=== PATIENT | female | born 1955 | race Caucasian/White ===

== ENCOUNTER → 2018-02-25 14:56 | Outpatient (CLI) | payer BC, SELFPAY ==
--- NOTE | 2018-02-25 14:59 | DI.MRI.S_ITS ---
PROCEDURE: MR HIP LT WO CON INDICATIONS: pain in left hip TECHNIQUE: Noncontrast coronal T1 spin echo and STIR through the bony pelvis. Coronal and axial T2 fast spin echo with fat saturation, sagittal T1 spin echo, and oblique axial T2 fast spin echo with fat saturation through the hip. COMPARISON: [facility], , [id number] W PEL IF PERFORMED, 12/18/2017, 16:49. FINDINGS: Image quality: Excellent. Bones and joints: Bone marrow of the pelvic ring and proximal femurs demonstrate normal signal. No intraosseous lesions or fractures. No avascular necrosis of the femoral heads. The visualized lower lumbar spine appears normally aligned. Tendons and ligaments: The gluteus medius tendon appears intact. There is mild partial tearing along the insertion of the gluteus minimus tendon distally. There is mild peritendinous edema along the distal gluteal tendons without a discrete bursal fluid collection. The nearby proximal iliotibial band also appears intact. The iliopsoas tendon appears intact, without adjacent bursal fluid collections or evidence for impingement syndrome. The origin of the hamstring tendon is intact at the ischial tuberosity, as well as the associated sacrotuberous ligament. The straight and reflected heads of the rectus femoris muscle origin appear intact, as well as the conjoint tendon. The ligamentum teres appears intact where visualized. Labrum and cartilage: The acetabular labrum appears intact in the absence of intra-articular contrast. There is mild degenerative signal within the superior and anterosuperior labrum. Cartilage surface of the femoral head demonstrates mild thickening superiorly. The alpha angle of the femur is within normal limits at less than 55 degrees. Soft tissues: Visualized muscles demonstrate normal bulk and internal signal. Quadratus femoris muscle demonstrates no internal edema to suggest ischiofemoral impingement. The proximal sciatic neurovascular bundle appears normal adjacent to the hamstring tendons. No free pelvic fluid. Bladder wall thickness is normal. Genitourinary structures and bowel loops appear normal where visualized. IMPRESSION: 1. Mild partial tearing at the insertion of the gluteus minimus tendon with mild peritendinitis. No discrete bursal fluid collection. 2. Mild degenerative signal within the labrum without discrete tear identified. Dictated by: Yohan Almaguer M.D. on 02/25/2018 at 17:00 Approved by: Yohan Almaguer M.D. on 02/25/2018 at 17:04
== END ==
PROVIDERS: PCP Family Medicine; Visit Provider Family Medicine
DX: M76.02 Gluteal tendinitis, left hip (principal); M25.552 Pain in left hip
CPT/HCPCS: 73721

== ENCOUNTER 2018-11-11 18:38 | Emergency (ER) | payer BC, SELFPAY ==
[2018-11-11 18:29] VITALS: BP 127/80; PULSE 99; RESP 20; TEMP 36.6; O2SAT 98; BMI 18.1
--- NOTE | 2018-11-11 19:00 | ED.BACK ---
HPI - Back Pain/Injury <ALEXANDER Figueroa - Last Filed: 11/11/18 22:18> General Chief Complaint: Back Pain/Injury Stated Complaint: Back pain Time Seen by Provider: 11/11/18 18:39 Source: patient Mode of arrival: ambulatory Limitations: no limitations History of Present Illness HPI Narrative: A 63-year-old female with history of a back pain is a former smoker here for complaint of pain into her lower back over the past couple of days. She was seen at primary care office today and due to having some red blood cells seen in her dip urine they wanted her to be seen here for evaluation for kidney stone. She denies any trauma to the lower back. She reports increased pain with motion of the lower back. She states she does have some pain into her bladder area. However she denies any frequent urination or dysuria. She has no nausea vomiting. No fevers or chills. She is tolerating p.o. fluids. She denies any strenuous activity. She denies any loss of bladder or bowel control. She is ambulatory today. She does report having some tingling sensations to bilateral legs. MD Complaint: back pain Onset (ago): minute(s) Duration: constant Related Data Previous Rx's Medication Instructions Recorded primidone 50 mg tablet 25 mg PO BID #180 03/07/18 hydrocodone 5 mg-acetaminophen 325 1 tab PO Q6HP PRN #30 04/30/18 mg tablet atorvastatin 10 mg tablet 10 mg PO HS #90 tab 06/04/18 sertraline 50 mg tablet 50 mg PO QDAY #90 tab 09/02/18 cephalexin 500 mg PO BID #14 cap 11/11/18 cyclobenzaprine 10 mg PO TID PRN #20 tab 11/11/18 prednisone 40 mg PO DAILY #8 tab 11/11/18 Allergies Allergy/AdvReac Type Severity Reaction Status Date / Time ciprofloxacin [From CIPRO] Allergy Unknown Verified 11/11/18 19:09 clindamycin [CLINDAMYCIN] Allergy Unknown Verified 11/11/18 19:09 codeine [CODEINE] Allergy Unknown Verified 11/11/18 19:09 erythromycin base Allergy Unknown Verified 11/11/18 19:09 [ERYTHROMYCIN BASE] Penicillins [PENICILLINS] Allergy Unknown Verified 11/11/18 19:09 Sulfa (Sulfonamide Allergy Unknown Verified 11/11/18 19:09 Antibiotics) [SULFA (SULFONAMIDE ANTIBIOTICS)] amoxicillin Allergy Verified 11/11/18 19:09 Review of Systems <ALEXANDER Figueroa - Last Filed: 11/11/18 22:18> Constitutional Denies chills, Denies fatigue, Denies fever(s), Denies lethargy and Denies weakness Eyes Denies change in vision, Denies eye discharge, Denies irritation and Denies loss of vision ENT Ears, Nose, Mouth, and Throat: Denies change in voice, Denies neck pain and Denies sore throat Cardiovascular Denies dyspnea and Denies dyspnea on exertion Respiratory Denies cough, Denies dyspnea, Denies dyspnea on exertion and Denies wheezing Gastrointestinal Gastrointestinal: Denies abdominal pain, Denies change in bowel habits, Denies diarrhea, Denies nausea and Denies vomiting Genitourinary Denies hematuria, Denies flank pain, Denies urinary incontinence and Denies urinary urgency Musculoskeletal Denies neck pain Comments: Lower back pain Integumentary/Breasts Denies pruritus, Denies erythema, Denies rash and Denies wounds Neurologic Denies confusion, Denies loss of vision and Denies weakness Psychiatric Denies anxiety, Denies confusion, Denies depression, Denies homicidal ideation and Denies suicidal ideation Endocrine Denies fatigue and Denies flushing Hematologic/Lymphatic Denies easy bruising Allergic/Immunologic Denies wheezing PFSH <ALEXANDER Figueroa - Last Filed: 11/11/18 22:18> Surgical History History of carpal tunnel release (Resolved 1982) Hx of hysterectomy (Resolved 1989) Hx of knee surgery (Resolved 1976) Hx of laparoscopy (Resolved 1988) Family History Father Cancer Grandfather No problems noted. Grandmother No problems noted. Grandfather No problems noted. Grandmother No problems noted. Social History Smoking Status: Former smoker alcohol intake: never substance use type: marijuana Social History Smoking Status: Former smoker alcohol intake: never substance use type: marijuana Exam <ALEXANDER Figueroa - Last Filed: 11/11/18 22:18> Initial Vital Signs Initial Vital Signs: Vital Signs Temperature 97.9 F 11/11/18 18:29 Pulse Rate 99 H 11/11/18 18:29 Respiratory Rate 20 11/11/18 18:29 Blood Pressure 127/80 11/11/18 18:29 Pulse Oximetry 98 11/11/18 18:29 Const General: cooperative and well developed Nutritional Appearance: well nourished Orientation: alert, awake, oriented x3 and not confused [facility] Mouth: oral mucosae normal and mucous membranes abnormal Eyes General: appearance normal, both eyes and all related structures Eyelids: eyelids normal Conjunctivae: conjunctivae normal Sclera: sclerae normal Pupils: PERRL EOM: EOM intact bilaterally Resp Effort & Inspection: normal respiratory effort, able to speak in complete sentences, no respiratory distress and no use of accessory muscles Auscultation: clear to auscultation bilaterally, no rales, no rhonchi and no wheezes Cardio Rate: regular rate Rhythm: regular rhythm Heart Sounds: no click, no gallops, no murmurs and no rubs Pulses: normal peripheral pulses GI Inspection: non-distended Palpation: soft, no hepatosplenomegaly, No guarding, No pulsatile mass and No tender Auscultation: normal bowel sounds Other: Pain into suprapubic area. General: No CVA tenderness Back/Spine/Pelvis Other: Tenderness to a bilateral paraspinal of lumbar area. Distal sensation is intact. Distal range of motions intact. Distal pulses are intact Skin General: no rashes or lesions noted, No jaundice and No petechiae Neuro General: alert, oriented x3, gait normal and no focal motor deficits Speech: speech normal <Fatmata Polo DO - Last Filed: 11/12/18 04:09> Initial Vital Signs Initial Vital Signs: Vital Signs Temperature 97.9 F 11/11/18 18:29 Pulse Rate 99 H 11/11/18 18:29 Respiratory Rate 20 11/11/18 18:29 Blood Pressure 127/80 1819 18:29 Pulse Oximetry 98 11/11/18 18:29 Course <ALEXANDER Figuerao - Last Filed: 11/11/18 22:18> Orders Ordered: ED Orders 11/11/18 19:10 Complete Blood Count AUTO DIFF Stat Comprehensive Metabolic Panel Stat Lipase Stat Partial Thromboplastin Time Stat Prothrombin Time INR Stat 11/11/18 19:33 CT kidney ureter bladder (KUB) Stat 11/11/18 20:00 Urine Culture Stat Urine Microscopic Stat Discontinued Medications Cephalexin HCl (Keflex) 500 mg PO NOW ONE Stop: 11/11/18 20:49 Last Admin: 11/11/18 21:19 Dose: 500 mg Cyclobenzaprine HCl (Flexeril 10 Mg Prepack) 1 bottle MISC SEEINSTR ONE Stop: 11/11/18 20:50 Last Admin: 11/11/18 21:19 Dose: 1 bottle Sodium Chloride (Normal Saline 0.9%) 1,000 mls @ 1,000 mls/hr IV BOLUS ONE Stop: 11/11/18 20:00 Last Infusion: 11/11/18 21:19 Dose: 0 mls/hr Admin: 11/11/18 19:09 Dose: 1,000 mls/hr Ketorolac Tromethamine (Toradol) 30 mg IV NOW ONE Stop: 11/11/18 19:02 Last Admin: 11/11/18 19:09 Dose: 30 mg Ondansetron HCl (Zofran) 4 mg IV NOW ONE Stop: 11/11/18 19:02 Last Admin: 11/11/18 19:09 Dose: 4 mg Vital Signs - 8 hr 11/11/18 20:45 Temperature 98.1 F Pulse Rate 71 Respiratory Rate 19 Blood Pressure [Left Arm] 118/65 Pulse Oximetry 99 <Fatmata Polo DO - Last Filed: 11/12/18 04:09> Orders Ordered: ED Orders 11/11/18 19:10 Complete Blood Count AUTO DIFF Stat Comprehensive Metabolic Panel Stat Lipase Stat Partial Thromboplastin Time Stat Prothrombin Time INR Stat 11/11/18 19:33 CT kidney ureter bladder (KUB) Stat 11/11/18 20:00 Urine Culture Stat Urine Microscopic Stat Discontinued Medications Cephalexin HCl (Keflex) 500 mg PO NOW ONE Stop: 11/11/18 20:49 Last Admin: 11/11/18 21:19 Dose: 500 mg Cyclobenzaprine HCl (Flexeril 10 Mg Prepack) 1 bottle MISC SEEINSTR ONE Stop: 11/11/18 20:50 Last Admin: 11/11/18 21:19 Dose: 1 bottle Sodium Chloride (Normal Saline 0.9%) 1,000 mls @ 1,000 mls/hr IV BOLUS ONE Stop: 11/11/18 20:00 Last Infusion: 11/11/18 21:19 Dose: 0 mls/hr Admin: 02/18/19 19:09 Dose: 1,000 mls/hr Ketorolac Tromethamine (Toradol) 30 mg IV NOW ONE Stop: 11/11/18 19:02 Last Admin: 11/11/18 19:09 Dose: 30 mg Ondansetron HCl (Zofran) 4 mg IV NOW ONE Stop: 11/11/18 19:02 Last Admin: 11/11/18 19:09 Dose: 4 mg Vital Signs - 8 hr 11/11/18 20:45 Temperature 98.1 F Pulse Rate 71 Respiratory Rate 19 Blood Pressure [Left Arm] 118/65 Pulse Oximetry 99 MDM - Back Pain/Injury <ALEXANDER Figueroa - Last Filed: 11/11/18 22:18> Lab Data Result diagrams: 11/11/18 19:10 11/11/18 19:10 Lab Results 11/11/18 11/11/18 11/11/18 Range/Units 19:10 19:10 19:10 WBC 7.1 (4.5-11.0) X10^3/uL RBC 5.03 (4.0-5.2) X10^6/uL Hgb 14.3 (12.0-16.0) g/dL Hct 42.7 (36-46) % MCV 85.1 (80-100) fL MCH 28.5 (26-34) PG MCHC 33.5 (30-36) % RDW 13.9 (11.6-14.8) % Plt Count 251 (150-400) X10^3/uL Neut % (Auto) 88.7 H (50-75) % Lymph % (Auto) 5.2 L (25-40) % [place] % (Auto) 4.9 (3-14) % Eos % (Auto) 0.5 L (2-4) % Baso % (Auto) 0.7 (0-2) % Neut # (Auto) 6300 (5307-9629) /uL Lymph # (Auto) 400 L (0792-8248) /uL [place] # (Auto) 300 (0-900) /uL Eos # (Auto) 0 (0-450) /uL Baso # (Auto) 100 (0-100) /uL PT 12.4 (10.1-12.7) SECONDS INR 1.1 (0.9-1.3) APTT 28 (26.4-36.2) SECONDS Sodium 135 L (137-145) mmol/L Potassium 3.5 (3.4-5.1) mmol/L Chloride 102 (98-107) mmol/L Carbon Dioxide 19 L (22-32) mmol/L BUN 11 (7-17) mg/dL Creatinine 0.80 (0.52-1.04) mg/dL Estimated GFR > 60.0 (>60) mL/min BUN/Creatinine Ratio 13.8 (6-22) Glucose 100 (80-110) mg/dL Calcium 9.6 (8.4-10.2) mg/dL Total Bilirubin 0.6 (0.2-1.3) mg/dL AST 22 (14-36) IU/L ALT 24 (9-52) IU/L Alkaline Phosphatase 72 (38-126) U/L Total Protein 7.5 (6.3-8.2) g/dL Albumin 4.7 (3.5-5.0) g/dL Globulin 2.8 (1.7-4.1) g/dL Albumin/Globulin Ratio 1.7 (1.0-2.8) Lipase 70 (23-300) U/L Urine RBC (0-5/HPF) Urine WBC (0-5/HPF) Ur Squamous Epith Cells Urine Bacteria (None) Ur Culture Indicated? 11/11/18 Range/Units 20:00 WBC (4.5-11.0) X10^3/uL RBC (4.0-5.2) X10^6/uL Hgb (12.0-16.0) g/dL Hct (36-46) % MCV (80-100) fL MCH (26-34) PG MCHC (30-36) % RDW (11.6-14.8) % Plt Count (150-400) X10^3/uL Neut % (Auto) (50-75) % Lymph % (Auto) (25-40) % [place] % (Auto) (3-14) % Eos % (Auto) (2-4) % Baso % (Auto) (0-2) % Neut # (Auto) (3933-5333) /uL Lymph # (Auto) (5545-9086) /uL [place] # (Auto) (0-900) /uL Eos # (Auto) (0-450) /uL Baso # (Auto) (0-100) /uL PT (10.1-12.7) SECONDS INR (0.9-1.3) APTT (26.4-36.2) SECONDS Sodium (137-145) mmol/L Potassium (3.4-5.1) mmol/L Chloride (98-107) mmol/L Carbon Dioxide (22-32) mmol/L BUN (7-17) mg/dL Creatinine (0.52-1.04) mg/dL Estimated GFR (>60) mL/min BUN/Creatinine Ratio (6-22) Glucose (80-110) mg/dL Calcium (8.4-10.2) mg/dL Total Bilirubin (0.2-1.3) mg/dL AST (14-36) IU/L ALT (9-52) IU/L Alkaline Phosphatase (38-126) U/L Total Protein (6.3-8.2) g/dL Albumin (3.5-5.0) g/dL Globulin (1.7-4.1) g/dL Albumin/Globulin Ratio (1.0-2.8) Lipase (23-300) U/L Urine RBC 1-5/hpf (0-5/HPF) Urine WBC 1-5/hpf (0-5/HPF) Ur Squamous Epith Cells 0-1 /hpf Urine Bacteria None seen (None) Ur Culture Indicated? Specimen cultured Urine Dip Bedside Urine Glucose Negative Bedside Urine Bilirubin - Negative Bedside Urine Ketone + 15 Urine Specific [place] 1.010 Bedside Urine Occult Blood ++ Bedside Urine pH 8.0 Bedside Urine Protein - Negative Bedside Urine Urobilinogen - Negative Bedside Urine Nitrite - Negative Bedside Urine Leukocytes + [address] scan - abdomen: Radiologist's impression: [address] [address] [address] Scan Report Signed Patient: Buffy Umana CMR#: [id number] : 5Acct:[id number] Age/Sex: 63 / FDate of Service: 11/11/18 Loc: ED Accession Number: [id number] Procedure: CT kidney ureter bladder (KUB) Ordering Provider: Armando Reilly PROCEDURE: CT KIDNEY URETER BLADDER (KUB) INDICATIONS: Bilateral lower back pain. RBCs in urine TECHNIQUE: Noncontrast 5 mm thick sections acquired from the diaphragms to the symphysis. 5 mm thick coronal and sagittal reformats were then performed. For radiation dose reduction, the following was used: automated exposure control, adjustment of mA and/or kV according to patient size. COMPARISON: None. FINDINGS: Image quality: Excellent. Lung bases: Lung bases are clear. Heart size is normal. Urinary system: Both kidneys are normal in size. No kidney stones. No hydronephrosis or perinephric fat stranding. Both ureters appear non-dilated throughout their expected courses. Bladder wall thickness is normal; no calcified bladder stones. Other solid organs: Liver is normal in size. Gallbladder is normal. Pancreas is normal in contours. Spleen is normal in size. No adrenal nodules. Mild left adrenal thickening. Peritoneum and bowel: Unenhanced bowel loops demonstrate normal wall thickness and caliber. No free fluid or air. There is a large amount stool in colon. Nodes and vessels: No retroperitoneal or mesenteric adenopathy by size criteria. Aorta and inferior vena cava are normal in caliber. Moderate aortic atherosclerosis. Abdominal wall: Tiny fat containing umbilical hernia. Pelvis: Uterus is absent. Ovaries are normal. There is no adnexal mass. No pathological free fluid. No inguinal hernias or adenopathy. Bones: No suspicious bony lesions. No vertebral body compression fractures. IMPRESSION: 1. No renal stones or hydronephrosis. 2. Large amount stool in colon. Dictated by: Kylie Putnam M.D. on 11/11/2018 at 20:17 Approved by: Kylie Putnam M.D. on 11/11/2018 at 20:24 MDM Narrative Medical decision making narrative: KUB CT was obtained was negative for any kidney stones or any acute findings. CBC was obtained and was unremarkable. chemistry panel was obtained and was also unremarkable. urinalysis showed positive for leuko esterase and 1-5 RBCs and 1-5 WBCs. Will treat for urinary tract infection with cephalexin. She is encouraged to follow up with primary care provider next few days for re-evaluation. Back pain presents as lower back sprain/strain. She is prescribed cyclobenzaprine to help with any muscle tension/spasm. [id number] ibuprofen as needed for any discomfort. Short course of prednisone to help with anti-inflammatory effects and was perceived as sciatica due to tingling to bilateral lower extremities. No loss of bladder or bowel control. Do not appreciate caude equine symptoms at time of exam. For any worsening symptoms return emergency room. <Fatmata Polo, DO - Last Filed: 11/12/18 04:09> Lab Data Lab Results 11/11/18 11/11/18 11/11/18 Range/Units 19:10 19:10 19:10 WBC 7.1 (4.5-11.0) X10^3/uL RBC 5.03 (4.0-5.2) X10^6/uL Hgb 14.3 (12.0-16.0) g/dL Hct 42.7 (36-46) % MCV 85.1 (80-100) fL MCH 28.5 (26-34) PG MCHC 33.5 (30-36) % RDW 13.9 (11.6-14.8) % Plt Count 251 (150-400) X10^3/uL Neut % (Auto) 88.7 H (50-75) % Lymph % (Auto) 5.2 L (25-40) % [place] % (Auto) 4.9 (3-14) % Eos % (Auto) 0.5 L (2-4) % Baso % (Auto) 0.7 (0-2) % Neut # (Auto) 6300 (2670-9658) /uL Lymph # (Auto) 400 L (9880-4168) /uL [place] # (Auto) 300 (0-900) /uL Eos # (Auto) 0 (0-450) /uL Baso # (Auto) 100 (0-100) /uL PT 12.4 (10.1-12.7) SECONDS INR 1.1 (0.9-1.3) APTT 28 (26.4-36.2) SECONDS Sodium 135 L (137-145) mmol/L Potassium 3.5 (3.4-5.1) mmol/L Chloride 102 (98-107) mmol/L Carbon Dioxide 19 L (22-32) mmol/L BUN 11 (7-17) mg/dL Creatinine 0.80 (0.52-1.04) mg/dL Estimated GFR > 60.0 (>60) mL/min BUN/Creatinine Ratio 13.8 (6-22) Glucose 100 (80-110) mg/dL Calcium 9.6 (8.4-10.2) mg/dL Total Bilirubin 0.6 (0.2-1.3) mg/dL AST 22 (14-36) IU/L ALT 24 (9-52) IU/L Alkaline Phosphatase 72 (38-126) U/L Total Protein 7.5 (6.3-8.2) g/dL Albumin 4.7 (3.5-5.0) g/dL Globulin 2.8 (1.7-4.1) g/dL Albumin/Globulin Ratio 1.7 (1.0-2.8) Lipase 70 (23-300) U/L Urine RBC (0-5/HPF) Urine WBC (0-5/HPF) Ur Squamous Epith Cells Urine Bacteria (None) Ur Culture Indicated? 11/11/18 Range/Units 20:00 WBC (4.5-11.0) X10^3/uL RBC (4.0-5.2) X10^6/uL Hgb (12.0-16.0) g/dL Hct (36-46) % MCV (80-100) fL MCH (26-34) PG MCHC (30-36) % RDW (11.6-14.8) % Plt Count (150-400) X10^3/uL Neut % (Auto) (50-75) % Lymph % (Auto) (25-40) % [place] % (Auto) (3-14) % Eos % (Auto) (2-4) % Baso % (Auto) (0-2) % Neut # (Auto) (7067-5171) /uL Lymph # (Auto) (9236-9866) /uL [place] # (Auto) (0-900) /uL Eos # (Auto) (0-450) /uL Baso # (Auto) (0-100) /uL PT (10.1-12.7) SECONDS INR (0.9-1.3) APTT (26.4-36.2) SECONDS Sodium (137-145) mmol/L Potassium (3.4-5.1) mmol/L Chloride (98-107) mmol/L Carbon Dioxide (22-32) mmol/L BUN (7-17) mg/dL Creatinine (0.52-1.04) mg/dL Estimated GFR (>60) mL/min BUN/Creatinine Ratio (6-22) Glucose (80-110) mg/dL Calcium (8.4-10.2) mg/dL Total Bilirubin (0.2-1.3) mg/dL AST (14-36) IU/L ALT (9-52) IU/L Alkaline Phosphatase (38-126) U/L Total Protein (6.3-8.2) g/dL Albumin (3.5-5.0) g/dL Globulin (1.7-4.1) g/dL Albumin/Globulin Ratio (1.0-2.8) Lipase (23-300) U/L Urine RBC 1-5/hpf (0-5/HPF) Urine WBC 1-5/hpf (0-5/HPF) Ur Squamous Epith Cells 0-1 /hpf Urine Bacteria None seen (None) Ur Culture Indicated? Specimen cultured Urine Dip Bedside Urine Glucose Negative Bedside Urine Bilirubin - Negative Bedside Urine Ketone + 15 Urine Specific [place] 1.010 Bedside Urine Occult Blood ++ Bedside Urine pH 8.0 Bedside Urine Protein - Negative Bedside Urine Urobilinogen - Negative Bedside Urine Nitrite - Negative Bedside Urine Leukocytes + 70 Esterase Discharge Plan Departure Patient Disposition: Home Clinical Impression: Strain of lumbar region Qualifiers: Encounter type: initial encounter Qualified Code(s): S39.012A - Strain of muscle, fascia and tendon of lower back, initial encounter Sciatica Qualifiers: Laterality: bilateral Qualified Code(s): M54.31 - Sciatica, right side Urinary tract infection Qualifiers: Urinary tract infection type: acute cystitis Hematuria presence: with hematuria Qualified Code(s): N30.01 - Acute cystitis with hematuria Discharge Date/Time: 11/11/18 21:26 Interventions: ED Discharge Assessment Last Done: 11/11/18 21:25 Instructions: DI for Back Pain With Sciatica Activity Restrictions/Additional Instructions: Back pain presents as a lower back sprain/strain with sciatica by laterally. UR placed on a muscle relaxer called cyclobenzaprine use as directed. Also use [id number] ibuprofen. Short course of prednisone is prescribed to help with sciatica symptoms use as directed. No driving while on muscle relaxer can make you drowsy. Urinalysis indicates urinary tract infection. Rest area. Gentle range of motion painful areas help keep muscles loose. You are placed on antibiotic called Keflex use as directed. For any worsening symptoms return to the emergency room. Prescriptions: New cyclobenzaprine 10 mg tablet 10 mg PO TID PRN (Reason: muscle spasm) Qty: 20 RF: 0 prednisone 20 mg tablet 40 mg PO DAILY Qty: 8 RF: 0 cephalexin 500 mg capsule 500 mg PO BID Qty: 14 RF: 0 No Action hydrocodone-acetaminophen 5-325 mg tablet 1 tab PO Q6HP PRN (Reason: pain) Qty: 30 RF: 0 primidone [Mysoline] 50 mg tablet 25 mg PO BID Qty: 180 RF: 1 atorvastatin [Lipitor] 10 mg tablet 10 mg PO HS Qty: 90 RF: 1 sertraline 50 mg tablet 50 mg PO QDAY Qty: 90 RF: 3 Referrals: [facility] [Provider Group] <Fatmata Polo DO - Last Filed: 11/12/18 04:09> Cosign ED Attending Tha Attestation: I was immediately available in the department for consultation. Documentation has been reviewed. I agree with assessment and plan.
[2018-11-11] MEDS: SODIUM CHLORIDE 0.9% 1,000 ML 1000 ML IV (19:09)
[2018-11-11] MEDS: KETOROLAC 60 MG/2 ML VIAL 30 MG IV (19:09)
[2018-11-11] MEDS: ONDANSETRON 4 MG/2 ML INJ IV (19:09)
[2018-11-11 19:27] LABS: Add Manual Diff / Slide Review NO; Basophils Absolute Auto 100 /uL (0-100); Basophils Percent Auto 0.7 % (0-2); Eosinophils Absolute Auto 0 /uL (0-450); Eosinophils Percent Auto 0.5 % (2-4); Hematocrit 42.7 % (36-46); Hemoglobin 14.3 g/dL (12.0-16.0); Lymphocytes Absolute Auto 400 /uL (1100-4500); Lymphocytes Percent Auto 5.2 % (25-40); Mean Corpuscular HGB Conc 33.5 % (30-36); Mean Corpuscular Hemoglobin 28.5 PG (26-34); Mean Corpuscular Volume 85.1 fL (80-100); Monocytes Absolute Auto 300 /uL (0-900); Monocytes Percent Auto 4.9 % (3-14); Neutrophils Absolute Auto 6300 /uL (1500-7000); Neutrophils Percent Auto 88.7 % (50-75); Platelet Count 251 X10^3/uL (150-400); Red Blood Cell Count 5.03 X10^6/uL (4.0-5.2); Red Cell Distribution Width 13.9 % (11.6-14.8); White Blood Cell Count 7.1 X10^3/uL (4.5-11.0)
[2018-11-11 19:33] LABS: INR 1.1 (0.9-1.3); Prothrombin Time 12.4 SECONDS (10.1-12.7)
--- NOTE | 2018-11-11 19:33 | DI.CT.S_ITS ---
PROCEDURE: CT KIDNEY URETER BLADDER (KUB) INDICATIONS: Bilateral lower back pain. RBCs in urine TECHNIQUE: Noncontrast 5 mm thick sections acquired from the diaphragms to the symphysis. 5 mm thick coronal and sagittal reformats were then performed. For radiation dose reduction, the following was used: automated exposure control, adjustment of mA and/or kV according to patient size. COMPARISON: None. FINDINGS: Image quality: Excellent. Lung bases: Lung bases are clear. Heart size is normal. Urinary system: Both kidneys are normal in size. No kidney stones. No hydronephrosis or perinephric fat stranding. Both ureters appear non-dilated throughout their expected courses. Bladder wall thickness is normal; no calcified bladder stones. Other solid organs: Liver is normal in size. Gallbladder is normal. Pancreas is normal in contours. Spleen is normal in size. No adrenal nodules. Mild left adrenal thickening. Peritoneum and bowel: Unenhanced bowel loops demonstrate normal wall thickness and caliber. No free fluid or air. There is a large amount stool in colon. Nodes and vessels: No retroperitoneal or mesenteric adenopathy by size criteria. Aorta and inferior vena cava are normal in caliber. Moderate aortic atherosclerosis. Abdominal wall: Tiny fat containing umbilical hernia. Pelvis: Uterus is absent. Ovaries are normal. There is no adnexal mass. No pathological free fluid. No inguinal hernias or adenopathy. Bones: No suspicious bony lesions. No vertebral body compression fractures. IMPRESSION: 1. No renal stones or hydronephrosis. 2. Large amount stool in colon. Dictated by: Kylie Putnam M.D. on 11/11/2018 at 20:17 Approved by: Kylie Putnam M.D. on 11/11/2018 at 20:24
[2018-11-11 19:36] LABS: PTT Partial Thromboplastin Tim 28 SECONDS (26.4-36.2)
[2018-11-11 19:40] LABS: Alanine Aminotransferase 24 IU/L (9-52); Albumin 4.7 g/dL (3.5-5.0); Albumin Globulin Ratio 1.7 (1.0-2.8); Alkaline Phosphatase 72 U/L (38-126); Aspartate Aminotransferase 22 IU/L (14-36); BUN Creatinine Ratio 13.8 (6-22); Bilirubin Total 0.6 mg/dL (0.2-1.3); Blood Urea Nitrogen 11 mg/dL (7-17); Calcium 9.6 mg/dL (8.4-10.2); Carbon Dioxide 19 mmol/L (22-32); Chloride 102 mmol/L (98-107); Estimated Glomerular Filt Rate > 60.0 mL/min (>60); Globulin 2.8 g/dL (1.7-4.1); Glucose 100 mg/dL (80-110); HEMOLYSIS < 15 (0-50); Lipase 70 U/L (23-300); Potassium 3.5 mmol/L (3.4-5.1); Sodium 135 mmol/L (137-145); Total Protein 7.5 g/dL (6.3-8.2)
[2018-11-11 20:08] LABS: Bacteria Urine None Seen
[2018-11-11 20:21] LABS: Culture Indicated Urine Specimen Cultured; RBC Urine 1-5/HPF (0-5/HPF); Squamous Epithelial Cell Urine 0-1 /HPF; WBC Urine 1-5/HPF (0-5/HPF)
--- NOTE | 2018-11-11 20:35 | ED_ITS ---
HPI - Back Pain/Injury <ALEXANDER Figueroa - Last Filed: 11/11/18 22:18> General Chief Complaint: Back Pain/Injury Stated Complaint: Back pain Time Seen by Provider: 11/11/18 18:39 Source: patient Mode of arrival: ambulatory Limitations: no limitations History of Present Illness HPI Narrative: A 63-year-old female with history of a back pain is a former smoker here for complaint of pain into her lower back over the past couple of days. She was seen at primary care office today and due to having some red blood cells seen in her dip urine they wanted her to be seen here for evaluation for kidney stone. She denies any trauma to the lower back. She reports increased pain with motion of the lower back. She states she does have some pain into her bladder area. However she denies any frequent urination or dysuria. She has no nausea vomiting. No fevers or chills. She is tolerating p.o. fluids. She denies any strenuous activity. She denies any loss of bladder or bowel control. She is ambulatory today. She does report having some tingling sensations to bilateral legs. MD Complaint: back pain Onset (ago): minute(s) Duration: constant Related Data Previous Rx's Medication Instructions Recorded primidone 50 mg tablet 25 mg PO BID #180 03/07/18 hydrocodone 5 mg-acetaminophen 325 1 tab PO Q6HP PRN #30 04/30/18 mg tablet atorvastatin 10 mg tablet 10 mg PO HS #90 tab 06/04/18 sertraline 50 mg tablet 50 mg PO QDAY #90 tab 09/02/18 cephalexin 500 mg PO BID #14 cap 11/11/18 cyclobenzaprine 10 mg PO TID PRN #20 tab 11/11/18 prednisone 40 mg PO DAILY #8 tab 11/11/18 Allergies Allergy/AdvReac Type Severity Reaction Status Date / Time ciprofloxacin [From CIPRO] Allergy Unknown Verified 11/11/18 19:09 clindamycin [CLINDAMYCIN] Allergy Unknown Verified 11/11/18 19:09 codeine [CODEINE] Allergy Unknown Verified 11/11/18 19:09 erythromycin base Allergy Unknown Verified 11/11/18 19:09 [ERYTHROMYCIN BASE] Penicillins [PENICILLINS] Allergy Unknown Verified 11/11/18 19:09 Sulfa (Sulfonamide Allergy Unknown Verified 11/11/18 19:09 Antibiotics) [SULFA (SULFONAMIDE ANTIBIOTICS)] amoxicillin Allergy Verified 11/11/18 19:09 Review of Systems <ALEXANDER Figueroa - Last Filed: 11/11/18 22:18> Constitutional Denies chills, Denies fatigue, Denies fever(s), Denies lethargy and Denies weakness Eyes Denies change in vision, Denies eye discharge, Denies irritation and Denies loss of vision ENT Ears, Nose, Mouth, and Throat: Denies change in voice, Denies neck pain and Denies sore throat Cardiovascular Denies dyspnea and Denies dyspnea on exertion Respiratory Denies cough, Denies dyspnea, Denies dyspnea on exertion and Denies wheezing Gastrointestinal Gastrointestinal: Denies abdominal pain, Denies change in bowel habits, Denies diarrhea, Denies nausea and Denies vomiting Genitourinary Denies hematuria, Denies flank pain, Denies urinary incontinence and Denies urinary urgency Musculoskeletal Denies neck pain Comments: Lower back pain Integumentary/Breasts Denies pruritus, Denies erythema, Denies rash and Denies wounds Neurologic Denies confusion, Denies loss of vision and Denies weakness Psychiatric Denies anxiety, Denies confusion, Denies depression, Denies homicidal ideation and Denies suicidal ideation Endocrine Denies fatigue and Denies flushing Hematologic/Lymphatic Denies easy bruising Allergic/Immunologic Denies wheezing PFSH <ALEXANDER Figueroa - Last Filed: 11/11/18 22:18> Surgical History History of carpal tunnel release (Resolved 1982) Hx of hysterectomy (Resolved 1989) Hx of knee surgery (Resolved 1976) Hx of laparoscopy (Resolved 1988) Family History Father Cancer Grandfather No problems noted. Grandmother No problems noted. Grandfather No problems noted. Grandmother No problems noted. Social History Smoking Status: Former smoker alcohol intake: never substance use type: marijuana Social History Smoking Status: Former smoker alcohol intake: never substance use type: marijuana Exam <ALEXANDER Figueroa - Last Filed: 11/11/18 22:18> Initial Vital Signs Initial Vital Signs: Vital Signs Temperature 97.9 F 11/11/18 18:29 Pulse Rate 99 H 11/11/18 18:29 Respiratory Rate 20 11/11/18 18:29 Blood Pressure 127/80 11/11/18 18:29 Pulse Oximetry 98 11/11/18 18:29 Const General: cooperative and well developed Nutritional Appearance: well nourished Orientation: alert, awake, oriented x3 and not confused [facility] Mouth: oral mucosae normal and mucous membranes abnormal Eyes General: appearance normal, both eyes and all related structures Eyelids: eyelids normal Conjunctivae: conjunctivae normal Sclera: sclerae normal Pupils: PERRL EOM: EOM intact bilaterally Resp Effort & Inspection: normal respiratory effort, able to speak in complete sentences, no respiratory distress and no use of accessory muscles Auscultation: clear to auscultation bilaterally, no rales, no rhonchi and no wheezes Cardio Rate: regular rate Rhythm: regular rhythm Heart Sounds: no click, no gallops, no murmurs and no rubs Pulses: normal peripheral pulses GI Inspection: non-distended Palpation: soft, no hepatosplenomegaly, No guarding, No pulsatile mass and No tender Auscultation: normal bowel sounds Other: Pain into suprapubic area. General: No CVA tenderness Back/Spine/Pelvis Other: Tenderness to a bilateral paraspinal of lumbar area. Distal sensation is intact. Distal range of motions intact. Distal pulses are intact Skin General: no rashes or lesions noted, No jaundice and No petechiae Neuro General: alert, oriented x3, gait normal and no focal motor deficits Speech: speech normal <Fatmata Polo DO - Last Filed: 11/12/18 04:09> Initial Vital Signs Initial Vital Signs: Vital Signs Temperature 97.9 F 11/11/18 18:29 Pulse Rate 99 H 11/11/18 18:29 Respiratory Rate 20 11/11/18 18:29 Blood Pressure 127/80 1819 18:29 Pulse Oximetry 98 11/11/18 18:29 Course <ALEXANDER Figueroa - Last Filed: 11/11/18 22:18> Orders Ordered: ED Orders 11/11/18 19:10 Complete Blood Count AUTO DIFF Stat Comprehensive Metabolic Panel Stat Lipase Stat Partial Thromboplastin Time Stat Prothrombin Time INR Stat 11/11/18 19:33 CT kidney ureter bladder (KUB) Stat 11/11/18 20:00 Urine Culture Stat Urine Microscopic Stat Discontinued Medications Cephalexin HCl (Keflex) 500 mg PO NOW ONE Stop: 11/11/18 20:49 Last Admin: 11/11/18 21:19 Dose: 500 mg Cyclobenzaprine HCl (Flexeril 10 Mg Prepack) 1 bottle MISC SEEINSTR ONE Stop: 11/11/18 20:50 Last Admin: 11/11/18 21:19 Dose: 1 bottle Sodium Chloride (Normal Saline 0.9%) 1,000 mls @ 1,000 mls/hr IV BOLUS ONE Stop: 11/11/18 20:00 Last Infusion: 11/11/18 21:19 Dose: 0 mls/hr Admin: 11/11/18 19:09 Dose: 1,000 mls/hr Ketorolac Tromethamine (Toradol) 30 mg IV NOW ONE Stop: 11/11/18 19:02 Last Admin: 11/11/18 19:09 Dose: 30 mg Ondansetron HCl (Zofran) 4 mg IV NOW ONE Stop: 11/11/18 19:02 Last Admin: 11/11/18 19:09 Dose: 4 mg Vital Signs - 8 hr 11/11/18 20:45 Temperature 98.1 F Pulse Rate 71 Respiratory Rate 19 Blood Pressure [Left Arm] 118/65 Pulse Oximetry 99 <Fatmata Polo DO - Last Filed: 11/12/18 04:09> Orders Ordered: ED Orders 11/11/18 19:10 Complete Blood Count AUTO DIFF Stat Comprehensive Metabolic Panel Stat Lipase Stat Partial Thromboplastin Time Stat Prothrombin Time INR Stat 11/11/18 19:33 CT kidney ureter bladder (KUB) Stat 11/11/18 20:00 Urine Culture Stat Urine Microscopic Stat Discontinued Medications Cephalexin HCl (Keflex) 500 mg PO NOW ONE Stop: 11/11/18 20:49 Last Admin: 11/11/18 21:19 Dose: 500 mg Cyclobenzaprine HCl (Flexeril 10 Mg Prepack) 1 bottle MISC SEEINSTR ONE Stop: 11/11/18 20:50 Last Admin: 11/11/18 21:19 Dose: 1 bottle Sodium Chloride (Normal Saline 0.9%) 1,000 mls @ 1,000 mls/hr IV BOLUS ONE Stop: 11/11/18 20:00 Last Infusion: 11/11/18 21:19 Dose: 0 mls/hr Admin: 02/18/19 19:09 Dose: 1,000 mls/hr Ketorolac Tromethamine (Toradol) 30 mg IV NOW ONE Stop: 11/11/18 19:02 Last Admin: 11/11/18 19:09 Dose: 30 mg Ondansetron HCl (Zofran) 4 mg IV NOW ONE Stop: 11/11/18 19:02 Last Admin: 11/11/18 19:09 Dose: 4 mg Vital Signs - 8 hr 11/11/18 20:45 Temperature 98.1 F Pulse Rate 71 Respiratory Rate 19 Blood Pressure [Left Arm] 118/65 Pulse Oximetry 99 MDM - Back Pain/Injury <ALEXANDER Figueroa - Last Filed: 11/11/18 22:18> Lab Data Result diagrams: 11/11/18 19:10 11/11/18 19:10 Lab Results 11/11/18 11/11/18 11/11/18 Range/Units 19:10 19:10 19:10 WBC 7.1 (4.5-11.0) X10^3/uL RBC 5.03 (4.0-5.2) X10^6/uL Hgb 14.3 (12.0-16.0) g/dL Hct 42.7 (36-46) % MCV 85.1 (80-100) fL MCH 28.5 (26-34) PG MCHC 33.5 (30-36) % RDW 13.9 (11.6-14.8) % Plt Count 251 (150-400) X10^3/uL Neut % (Auto) 88.7 H (50-75) % Lymph % (Auto) 5.2 L (25-40) % [place] % (Auto) 4.9 (3-14) % Eos % (Auto) 0.5 L (2-4) % Baso % (Auto) 0.7 (0-2) % Neut # (Auto) 6300 (4553-5451) /uL Lymph # (Auto) 400 L (0123-4676) /uL [place] # (Auto) 300 (0-900) /uL Eos # (Auto) 0 (0-450) /uL Baso # (Auto) 100 (0-100) /uL PT 12.4 (10.1-12.7) SECONDS INR 1.1 (0.9-1.3) APTT 28 (26.4-36.2) SECONDS Sodium 135 L (137-145) mmol/L Potassium 3.5 (3.4-5.1) mmol/L Chloride 102 (98-107) mmol/L Carbon Dioxide 19 L (22-32) mmol/L BUN 11 (7-17) mg/dL Creatinine 0.80 (0.52-1.04) mg/dL Estimated GFR > 60.0 (>60) mL/min BUN/Creatinine Ratio 13.8 (6-22) Glucose 100 (80-110) mg/dL Calcium 9.6 (8.4-10.2) mg/dL Total Bilirubin 0.6 (0.2-1.3) mg/dL AST 22 (14-36) IU/L ALT 24 (9-52) IU/L Alkaline Phosphatase 72 (38-126) U/L Total Protein 7.5 (6.3-8.2) g/dL Albumin 4.7 (3.5-5.0) g/dL Globulin 2.8 (1.7-4.1) g/dL Albumin/Globulin Ratio 1.7 (1.0-2.8) Lipase 70 (23-300) U/L Urine RBC (0-5/HPF) Urine WBC (0-5/HPF) Ur Squamous Epith Cells Urine Bacteria (None) Ur Culture Indicated? 11/11/18 Range/Units 20:00 WBC (4.5-11.0) X10^3/uL RBC (4.0-5.2) X10^6/uL Hgb (12.0-16.0) g/dL Hct (36-46) % MCV (80-100) fL MCH (26-34) PG MCHC (30-36) % RDW (11.6-14.8) % Plt Count (150-400) X10^3/uL Neut % (Auto) (50-75) % Lymph % (Auto) (25-40) % [place] % (Auto) (3-14) % Eos % (Auto) (2-4) % Baso % (Auto) (0-2) % Neut # (Auto) (6193-0512) /uL Lymph # (Auto) (8281-1864) /uL [place] # (Auto) (0-900) /uL Eos # (Auto) (0-450) /uL Baso # (Auto) (0-100) /uL PT (10.1-12.7) SECONDS INR (0.9-1.3) APTT (26.4-36.2) SECONDS Sodium (137-145) mmol/L Potassium (3.4-5.1) mmol/L Chloride (98-107) mmol/L Carbon Dioxide (22-32) mmol/L BUN (7-17) mg/dL Creatinine (0.52-1.04) mg/dL Estimated GFR (>60) mL/min BUN/Creatinine Ratio (6-22) Glucose (80-110) mg/dL Calcium (8.4-10.2) mg/dL Total Bilirubin (0.2-1.3) mg/dL AST (14-36) IU/L ALT (9-52) IU/L Alkaline Phosphatase (38-126) U/L Total Protein (6.3-8.2) g/dL Albumin (3.5-5.0) g/dL Globulin (1.7-4.1) g/dL Albumin/Globulin Ratio (1.0-2.8) Lipase (23-300) U/L Urine RBC 1-5/hpf (0-5/HPF) Urine WBC 1-5/hpf (0-5/HPF) Ur Squamous Epith Cells 0-1 /hpf Urine Bacteria None seen (None) Ur Culture Indicated? Specimen cultured Urine Dip Bedside Urine Glucose Negative Bedside Urine Bilirubin - Negative Bedside Urine Ketone + 15 Urine Specific [place] 1.010 Bedside Urine Occult Blood ++ Bedside Urine pH 8.0 Bedside Urine Protein - Negative Bedside Urine Urobilinogen - Negative Bedside Urine Nitrite - Negative Bedside Urine Leukocytes + [address] scan - abdomen: Radiologist's impression: [address] [address] [address] Scan Report Signed Patient: Buffy Umana CMR#: [id number] : 5Acct:[id number] Age/Sex: 63 / FDate of Service: 11/11/18 Loc: ED Accession Number: [id number] Procedure: CT kidney ureter bladder (KUB) Ordering Provider: Armando Reilly PROCEDURE: CT KIDNEY URETER BLADDER (KUB) INDICATIONS: Bilateral lower back pain. RBCs in urine TECHNIQUE: Noncontrast 5 mm thick sections acquired from the diaphragms to the symphysis. 5 mm thick coronal and sagittal reformats were then performed. For radiation dose reduction, the following was used: automated exposure control, adjustment of mA and/or kV according to patient size. COMPARISON: None. FINDINGS: Image quality: Excellent. Lung bases: Lung bases are clear. Heart size is normal. Urinary system: Both kidneys are normal in size. No kidney stones. No h ydronephrosis or perinephric fat stranding. Both ureters appear non-dilated throughout their expected courses. Bladder wall thickness is normal; no calcified bladder stones. Other solid organs: Liver is normal in size. Gallbladder is normal. Pancreas is normal in contours. Spleen is normal in size. No adrenal nodules. Mild left adrenal thickening. Peritoneum and bowel: Unenhanced bowel loops demonstrate normal wall thickness and caliber. No free fluid or air. There is a large amount stool in colon. Nodes and vessels: No retroperitoneal or mesenteric adenopathy by size criteria. Aorta and inferior vena cava are normal in caliber. Moderate aortic atherosclerosis. Abdominal wall: Tiny fat containing umbilical hernia. Pelvis: Uterus is absent. Ovaries are normal. There is no adnexal mass. No pathological free fluid. No inguinal hernias or adenopathy. Bones: No suspicious bony lesions. No vertebral body compression fractures. IMPRESSION: 1. No renal stones or hydronephrosis. 2. Large amount stool in colon. Dictated by: Kylie Putnam M.D. on 11/11/2018 at 20:17 Approved by: Kylie Putnam M.D. on 11/11/2018 at 20:24 MDM Narrative Medical decision making narrative: KUB CT was obtained was negative for any kidney stones or any acute findings. CBC was obtained and was unremarkable. chemistry panel was obtained and was also unremarkable. urinalysis showed positive for leuko esterase and 1-5 RBCs and 1-5 WBCs. Will treat for urinary tract infection with cephalexin. She is encouraged to follow up with primary care provider next few days for re-evaluation. Back pain presents as lower back sprain/strain. She is prescribed cyclobenzaprine to help with any muscle tension/spasm. [id number] ibuprofen as needed for any discomfort. Short course of prednisone to help with anti-inflammatory effects and was perceived as sciatica due to tingling to bilateral lower extremities. No loss of bladder or bowel control. Do not appreciate caude equine symptoms at time of exam. For any worsening symptoms return emergency room. <Fatmata Polo, DO - Last Filed: 11/12/18 04:09> Lab Data Lab Results 11/11/18 11/11/18 11/11/18 Range/Units 19:10 19:10 19:10 WBC 7.1 (4.5-11.0) X10^3/uL RBC 5.03 (4.0-5.2) X10^6/uL Hgb 14.3 (12.0-16.0) g/dL Hct 42.7 (36-46) % MCV 85.1 (80-100) fL MCH 28.5 (26-34) PG MCHC 33.5 (30-36) % RDW 13.9 (11.6-14.8) % Plt Count 251 (150-400) X10^3/uL Neut % (Auto) 88.7 H (50-75) % Lymph % (Auto) 5.2 L (25-40) % [place] % (Auto) 4.9 (3-14) % Eos % (Auto) 0.5 L (2-4) % Baso % (Auto) 0.7 (0-2) % Neut # (Auto) 6300 (4049-8334) /uL Lymph # (Auto) 400 L (0297-7843) /uL [place] # (Auto) 300 (0-900) /uL Eos # (Auto) 0 (0-450) /uL Baso # (Auto) 100 (0-100) /uL PT 12.4 (10.1-12.7) SECONDS INR 1.1 (0.9-1.3) APTT 28 (26.4-36.2) SECONDS Sodium 135 L (137-145) mmol/L Potassium 3.5 (3.4-5.1) mmol/L Chloride 102 (98-107) mmol/L Carbon Dioxide 19 L (22-32) mmol/L BUN 11 (7-17) mg/dL Creatinine 0.80 (0.52-1.04) mg/dL Estimated GFR > 60.0 (>60) mL/min BUN/Creatinine Ratio 13.8 (6-22) Glucose 100 (80-110) mg/dL Calcium 9.6 (8.4-10.2) mg/dL Total Bilirubin 0.6 (0.2-1.3) mg/dL AST 22 (14-36) IU/L ALT 24 (9-52) IU/L Alkaline Phosphatase 72 (38-126) U/L Total Protein 7.5 (6.3-8.2) g/dL Albumin 4.7 (3.5-5.0) g/dL Globulin 2.8 (1.7-4.1) g/dL Albumin/Globulin Ratio 1.7 (1.0-2.8) Lipase 70 (23-300) U/L Urine RBC (0-5/HPF) Urine WBC (0-5/HPF) Ur Squamous Epith Cells Urine Bacteria (None) Ur Culture Indicated? 11/11/18 Range/Units 20:00 WBC (4.5-11.0) X10^3/uL RBC (4.0-5.2) X10^6/uL Hgb (12.0-16.0) g/dL Hct (36-46) % MCV (80-100) fL MCH (26-34) PG MCHC (30-36) % RDW (11.6-14.8) % Plt Count (150-400) X10^3/uL Neut % (Auto) (50-75) % Lymph % (Auto) (25-40) % [place] % (Auto) (3-14) % Eos % (Auto) (2-4) % Baso % (Auto) (0-2) % Neut # (Auto) (8882-5777) /uL Lymph # (Auto) (1805-0823) /uL [place] # (Auto) (0-900) /uL Eos # (Auto) (0-450) /uL Baso # (Auto) (0-100) /uL PT (10.1-12.7) SECONDS INR (0.9-1.3) APTT (26.4-36.2) SECONDS Sodium (137-145) mmol/L Potassium (3.4-5.1) mmol/L Chloride (98-107) mmol/L Carbon Dioxide (22-32) mmol/L BUN (7-17) mg/dL Creatinine (0.52-1.04) mg/dL Estimated GFR (>60) mL/min BUN/Creatinine Ratio (6-22) Glucose (80-110) mg/dL Calcium (8.4-10.2) mg/dL Total Bilirubin (0.2-1.3) mg/dL AST (14-36) IU/L ALT (9-52) IU/L Alkaline Phosphatase (38-126) U/L Total Protein (6.3-8.2) g/dL Albumin (3.5-5.0) g/dL Globulin (1.7-4.1) g/dL Albumin/Globulin Ratio (1.0-2.8) Lipase (23-300) U/L Urine RBC 1-5/hpf (0-5/HPF) Urine WBC 1-5/hpf (0-5/HPF) Ur Squamous Epith Cells 0-1 /hpf Urine Bacteria None seen (None) Ur Culture Indicated? Specimen cultured Urine Dip Bedside Urine Glucose Negative Bedside Urine Bilirubin - Negative Bedside Urine Ketone + 15 Urine Specific [place] 1.010 Bedside Urine Occult Blood ++ Bedside Urine pH 8.0 Bedside Urine Protein - Negative Bedside Urine Urobilinogen - Negative Bedside Urine Nitrite - Negative Bedside Urine Leukocytes + 70 Esterase Discharge Plan Departure Patient Disposition: Home Clinical Impression: Strain of lumbar region Qualifiers: Encounter type: initial encounter Qualified Code(s): S39.012A - Strain of muscle, fascia and tendon of lower back, initial encounter Sciatica Qualifiers: Laterality: bilateral Qualified Code(s): M54.31 - Sciatica, right side Urinary tract infection Qualifiers: Urinary tract infection type: acute cystitis Hematuria presence: with hematuria Qualified Code(s): N30.01 - Acute cystitis with hematuria Discharge Date/Time: 11/11/18 21:26 Interventions: ED Discharge Assessment Last Done: 11/11/18 21:25 Instructions: DI for Back Pain With Sciatica Activity Restrictions/Additional Instructions: Back pain presents as a lower back sprain/strain with sciatica by laterally. UR placed on a muscle relaxer called cyclobenzaprine use as directed. Also use [id number] ibuprofen. Short course of prednisone is prescribed to help with sciatica symptoms use as directed. No driving while on muscle relaxer can make you drowsy. Urinalysis indicates urinary tract infection. Rest area. Gentle range of motion painful areas help keep muscles loose. You are placed on antibiotic called Keflex use as directed. For any worsening symptoms return to the emergency room. Prescriptions: New cyclobenzaprine 10 mg tablet 10 mg PO TID PRN (Reason: muscle spasm) Qty: 20 RF: 0 prednisone 20 mg tablet 40 mg PO DAILY Qty: 8 RF: 0 cephalexin 500 mg capsule 500 mg PO BID Qty: 14 RF: 0 No Action hydrocodone-acetaminophen 5-325 mg tablet 1 tab PO Q6HP PRN (Reason: pain) Qty: 30 RF: 0 primidone [Mysoline] 50 mg tablet 25 mg PO BID Qty: 180 RF: 1 atorvastatin [Lipitor] 10 mg tablet 10 mg PO HS Qty: 90 RF: 1 sertraline 50 mg tablet 50 mg PO QDAY Qty: 90 RF: 3 Referrals: [facility] [Provider Group] <Fatmata Polo DO - Last Filed: 11/12/18 04:09> Cosign ED Attending Tha Attestation: I was immediately available in the department for consultation. Documentation has been reviewed. I agree with assessment and plan.
[2018-11-11 20:45] VITALS: BP 118/65; PULSE 71; RESP 19; TEMP 36.7; O2SAT 99
[2018-11-11] MEDS: CYCLOBENZAPRINE 10 MG PREPACK 1 BOTTLE MISC (21:19)
[2018-11-11] MEDS: cephALEXin 250 MG CAPSULE 500 MG PO (21:19)
== END 2018-11-11 21:26 | disposition home or self-care (01) ==
PROVIDERS: Emergency Provider Nurse Practitioner Family
DX: S39.012A Strain of muscle, fascia and tendon of lower back, initial encounter (principal); M54.31 Sciatica, right side; N30.01 Acute cystitis with hematuria
CPT/HCPCS: 36415; 74176; 80053; 81003; 81015; 83690; 85025; 85610; 85730; 87086; 96361; 96374; 96375; 99283; 99284; J1885; J2405

== ENCOUNTER → 2018-12-24 10:35 | Outpatient (CLI) | payer BC, SELFPAY ==
--- NOTE | 2018-12-24 | DI.MG.S_ITS ---
BILATERAL DIGITAL SCREENING MAMMOGRAM 3D/2D WITH CAD: 12/24/2018 CLINICAL: Routine screening. No prior exams were available for comparison. The tissue of both breasts is heterogeneously dense. This may lower the sensitivity of mammography. Current study was also evaluated with a Computer Aided Detection (CAD) system. There is 0.8 cm oval equal density asymmetry in the right breast at 10 o'clock middle depth. No other significant masses, calcifications, or other findings are seen in either breast. IMPRESSION: INCOMPLETE: NEEDS ADDITIONAL IMAGING EVALUATION The 0.8 cm oval equal density asymmetry in the right breast is indeterminate. Additional views with possible ultrasound are recommended. However, if prior mammograms become available for review prior to patient's follow up appointment, and stability of this finding can be determined, then she may not need to undergo further evaluation. This exam was interpreted at Station ID: [id number]. NOTE: For mammograms, a report in lay terms will be sent to the patient. Approximately 15% of breast malignancies will not be visualized mammographically. In the management of a palpable breast mass, a negative mammogram must not discourage biopsy of a clinically suspicious lesion. Electronically Signed By: Robert Olson M.D. aty/:12/24/2018 11:41:53 letter sent: Additional Imaging Needed ACR BI-RADS Category 0: Incomplete [id number]
== END ==
PROVIDERS: Visit Provider Physician Assistant Medical
DX: Z12.31 Encounter for screening mammogram for malignant neoplasm of breast (principal)
CPT/HCPCS: 77063; 77067

== ENCOUNTER → 2019-01-28 12:35 | Outpatient (CLI) | payer BC, SELFPAY ==
--- NOTE | 2019-01-28 | DI.MG.S_ITS ---
UNILATERAL RIGHT DIGITAL DIAGNOSTIC MAMMOGRAM 3D/2D WITH ADDITIONAL VIEWS: 01/28/2019 CLINICAL: Additional evaluation requested from prior study. Comparison is made to exams dated: 12/24/2018 mammogram - [facility], 10/14/2015 mammogram, and 10/09/2013 mammogram - [facility]. The tissue of right breast is heterogeneously dense. This may lower the sensitivity of mammography. There is an oval equal density asymmetry with an indistinct margin in the right breast at 11 o'clock posterior depth. No other significant masses or calcifications are seen in the breast. IMPRESSION: INCOMPLETE: NEEDS ADDITIONAL IMAGING EVALUATION The oval equal density asymmetry in the right breast is indeterminate. An ultrasound is recommended. This exam was interpreted at Station ID: [id number]. NOTE: For mammograms, a report in lay terms will be sent to the patient. Approximately 15% of breast malignancies will not be visualized mammographically. In the management of a palpable breast mass, a negative mammogram must not discourage biopsy of a clinically suspicious lesion. Electronically Signed By: Yohan meneses/nolan:01/28/2019 13:10:16 ACR BI-RADS Category 0: Incomplete [id number]
--- NOTE | 2019-01-28 | DI.US.S_ITS ---
LIMITED ULTRASOUND OF RIGHT BREAST: 01/28/2019 CLINICAL: Inconclusive mammo rt breast. Comparison is made to exams dated: 01/28/2019 mammogram, 12/24/2018 mammogram - [facility], 10/14/2015 mammogram, and 10/09/2013 mammogram - [facility]. Color flow and real-time ultrasound of the right breast upper outer quadrant were performed on the areas of interest. There is a benign 0.9 cm x 0.5 cm x 0.7 cm oval simple cyst with a smooth internal wall in the right breast at 10 o'clock middle depth. This oval simple cyst is anechoic with a well-defined boundary and posterior acoustic enhancement. This correlates with mammography findings. Color flow imaging demonstrates that there is no vascularity present. IMPRESSION: BENIGN There is no sonographic evidence of malignancy. The 0.9 cm x 0.5 cm x 0.7 cm oval simple cyst in the right breast is benign. Return to annual mammogram screening schedule is recommended. This exam was interpreted at Station ID: [id number]. Electronically Signed By: Yohan meneses/nolan:01/28/2019 13:53:06 letter sent: Normal Exam Ultrasound BI-RADS: 2 Benign
== END ==
PROVIDERS: PCP Physician Assistant Medical; Visit Provider Physician Assistant Medical
DX: R92.8 Other abnormal and inconclusive findings on diagnostic imaging of breast (principal); N64.89 Other specified disorders of breast
CPT/HCPCS: 76642; 77065; G0279